=== PATIENT | male | born 2000 ===

== ENCOUNTER 2023-05-27 13:50 | Emergency (ER) | payer OTHER ==
[~2023-05-27] VITALS: Ht 177.8 cm; Wt 59.0 kg
[2023-05-27] MEDS ORDERED: MOBIC7.5 MG PO (15:54)
== END 2023-05-27 16:14 | disposition home or self-care (01) ==
LOC: ER 13:50
DX: M12.571 Traumatic arthropathy, right ankle and foot (principal)